=== PATIENT | female | born 1995 | race African-American/Black ===

== ENCOUNTER 2016-03-25 14:07 | Emergency (ER) | payer SELFPAY ==
[~2016-03-25] VITALS: Ht 160 cm; Wt 49.0 kg
[2016-03-25 15:15] VITALS: BP 114/62
--- NOTE | 2016-03-25 15:22 | PHYS DOC ---
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 No interventions prior to arrival. Review of Systems Review of Systems Constitutional: Denies fever or chills Eyes: Denies change in visual acuity, redness, or eye pain HENT: Denies nasal congestion or sore throat Respiratory: Denies cough or shortness of breath Cardiovascular: No additional information not addressed in HPI GI: Denies abdominal pain, nausea, vomiting, bloody stools or diarrhea : Denies dysuria or hematuria Musculoskeletal: Denies back pain. Left foot pain Integument: Denies rash or skin lesions Neurologic: Denies headache, focal weakness or sensory changes Endocrine: Denies polyuria or polydipsia [] Current Medications Current Medications Current Medications Medications (Trade) Dose Ordered Sig/Hilda Start Time Stop Time Status Last Admin Dose Admin Acetaminophen (Tylenol) 650 mg 1X ONCE 03/25/16 15:30 03/25/16 15:31 DC 03/25/16 15:40 650 MG Allergies Allergies Allergies Coded Allergies Type Severity Reaction Last Updated Verified No Known Drug Allergies 03/25/16 No Physical Exam Physical Exam Constitutional: Well developed, well nourished, no acute distress, non-toxic appearance. HENT: Normocephalic, atraumatic, bilateral external ears normal, oropharynx moist, no oral exudates, nose normal. Eyes: PERRLA, EOMI, conjunctiva normal, no discharge. Neck: Normal range of motion, no tenderness, supple, no stridor. Cardiovascular:Heart rate regular rhythm, no murmur Lungs & Thorax: Bilateral breath sounds clear to auscultation Abdomen: Bowel sounds normal, soft, no tenderness, no masses, no pulsatile masses. Skin: Warm, dry, no erythema, no rash. Back: No tenderness, no CVA tenderness. Extremities: No cyanosis, no clubbing, ROM intact, no edema. Tenderness distal 1 ,2,3 metatarsal Neurologic: Alert and oriented X 3, normal motor function, normal sensory function, no focal deficits noted. Psychologic: Affect normal, judgement normal, mood normal. [] Current Patient Data Vital Signs Vital Signs Date Time Temp Pulse Resp B/P Pulse Ox O2 Delivery O2 Flow Rate FiO2 2/15/17 15:15 97.8 83 18 100 Room Air 97.8 EKG EKG [] Radiology/Procedures Radiology/Procedures [] Impressions: 1. Foot contusion Course & Med Decision Making Course & Med Decision Making Pertinent Labs and Imaging studies reviewed. (See chart for details) [] Dragon Disclaimer Dragon Disclaimer This electronic medical record was generated, in whole or in part, using a voice recognition dictation system. Departure Departure Impression: Primary Impression: Contusion of left foot, initial encounter Disposition: HOME, SELF-CARE Condition: STABLE Referrals: NO PCP (PCP) Patient Instructions: Foot Contusion, [id number] Additional Instructions: May take Ibuprofen and/or Tylenol for discomfort. Follow up with Primary doctor in 2-3 days if no improvement. return if problems or concerns CAROLINA FATIMA APRN Mar 25, 2016 15:22
[2016-03-25] MEDS ORDERED: ACETAMINOPHEN 325 MG TABLET. PO ONE (15:30)
--- NOTE | 2016-03-25 15:49 | RAD ---
Left foot, 3 views, 03/25/2016: History: Foot pain, injuries No fracture or dislocation is identified. The soft tissues are unremarkable. IMPRESSION: No acute left foot abnormality is detected.
== END 2016-03-25 16:11 | disposition home or self-care (01) ==
LOC: ER 14:07
DX: S90.32XA Contusion of left foot, initial encounter (principal); W20.8XXA Other cause of strike by thrown, projected or falling object, initial encounter; Y93.89 Activity, other specified; Y99.8 Other external cause status; Y92.218 Other school as the place of occurrence of the external cause
CPT/HCPCS: 73630; 99284